=== PATIENT | male | born 1940 | race Caucasian/White ===

== ENCOUNTER 2018-12-04 16:02 | Inpatient (IN) | payer MEDICARE, BC ==
[~2018-12-04] VITALS: Ht 185.4 cm; Wt 79.8 kg
--- OUTSIDE RECORDS SUMMARY | 2018-12-04 16:05 | XMS REPORT | Clinical Summary ---
Author Author [facility] Organization [facility] Address Unknown Phone Unavailable Care Team Providers Care Auto Body Customizer Name Role Phone Coy Jolly PCP Allergies Comments Active Allergy Reactions Severity Noted Date Sulfa (Sulfonamide 07/23/2016 Antibiotics) Sulphated Oil 07/23/2016 Medications End Date Status Medication Sig Dispensed Refills Start Date Active glipiZIDE (GLUCOTROL) 2.5 Take 2.5 mg 0 MG 24 hr tablet by mouth daily. Active amLODIPine (NORVASC) 5 mg Take 5 mg by 0 tablet mouth daily. Active isosorbide dinitrate Take 20 mg by 0 (ISORDIL) 20 MG tablet mouth 2 (two) times a day. Active docusate sodium (COLACE) Take 100 mg 0 100 MG capsule by mouth daily as needed for constipation. Active metoprolol succinate XL Take 25 mg by 0 (TOPROL-XL) 25 mg 24 hr mouth daily. tablet Active lisinopril Take 2.5 mg 0 (PRINIVIL,ZESTRIL) 2.5 mg by mouth tablet nightly. 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 Last Filed Vital Signs Not on file Plan of Treatment Health Maintenance Due Date Last Done Comments SHINGLES VACCINES (#1) 1988 65+ PNEUMOCOCCAL VACCINE 2003 (1 of 2 - PCV13) INFLUENZA VACCINE 10/13/2018 01/22/2012 Results Not on fileafter 12/03/2017 Insurance Type Payer Benefit Subscriber ID Effective Phone Address Plan / Dates Group Medicare MEDICARE MEDICARE xxxxxxxxxx 1995-P [place], PART A AND resent [place] B PPO BCBS BCBS xxxxxxxxxxxx 2014-P CHOICE resent PPO/IAIN KEN PPO Advance Directives For more information, please contact: [phone] Patient Recovery Coordinator Explanation Type Date Recorded Advance Directives, Living Will and Medical Power of Cash Applications Representative
--- OUTSIDE RECORDS SUMMARY | 2018-12-04 16:05 | XMS REPORT ---
Author [facility] Address Unknown Phone Unavailable Care Team Providers Care Cyber Software Engineer Name Role Phone Unavailable Unavailable Payers Payer Name Policy Type Policy Number Effective Date Expiration Date Problems This patient has no known problems. Allergies, Adverse Reactions, Alerts Allergy Name Allergy Type Status Severity Reaction(s) Onset Date Inactive Date Treating Clinician Comments Sulfa (Sulfonamide Antibiotics) DA Active MO 2017-04-13 00:00:00 Medications This patient has no known medications. Results Test Description Test Time Test Comments Text Results Atomic Results Result Comments GLUBED 2018-08-29 08:05:00 GLUBED (test code=GLUBED) 167 mg/dL 74-106 Performed by certified bituminous distributor operator at [facility] [id number] 08:05:00* Test Item Value Reference Range Comments GLUBED (test code=GLUBED) 79 mg/dL 74-106 Performed by certified bituminous distributor operator at [facility] [id number] 08:05:00* Test Item Value Reference Range Comments GLUBED (test code=GLUBED) 101 mg/dL 74-106 Performed by certified bituminous distributor operator at [facility] AB HEPATITIS B [id number] 06:11:00* Test Item Value Reference Range Comments AB HEPATITIS B SURFACE (test code=HBSAB) Non Reactive () Non Reactive: Inconsistent with immunity, less than 10 mIU/mL Reactive: Consistent with immunity, greater than 9.9 mIU/mLPerformed At: [facility] [address] [place], [place] [id number] Rigo Greene MD Ph:[phone] S@SENT TO: [id number] 11:04:00* Test Item Value Reference Range Comments GLUBED (test code=GLUBED) 131 mg/dL 74-106 Performed by certified bituminous distributor operator at [facility] [id number] 20:24:00* Test Item Value Reference Range Comments GLUBED (test code=GLUBED) 161 mg/dL 74-106 Performed by certified bituminous distributor operator at [facility] [id number] 21:41:00* Test Item Value Reference Range Comments GLUBED (test code=GLUBED) 108 mg/dL 74-106 Performed by certified bituminous distributor operator at [facility] BASIC METABOLIC [id number] 09:02:00* Test Item Value Reference Range Comments SODIUM (test code=NA) 136 mmol/L 136-145 POTASSIUM (test code=K) 4.1 mmol/L 3.5-5.1 CHLORIDE (test code=CL) 101.0 mmol/L 98-107 CARBON DIOXIDE (test code=CO2) 24.0 mmol/L 21-32 ANION GAP (test code=GAP) 15.1 10-20 GLUCOSE (test code=GLU) 100 mg/dL 74-106 BLOOD UREA NITROGEN (test code=BUN) 33 mg/dL 7-18 GLOMERULAR FILTRATION RATE (test code=GFR) 10 mL/min >=60 Estimated GFR by using Modified MDRD formula.Chronic kidney disease is defined as either kidney damageor GFR <60 mL/min/1.73 m2 for >3 months. CREATININE (test code=CREAT) 5.40 mg/dL 0.7-1.3 BUN/CREATININE RATIO (test code=BUN/CREA) 6.1 10-20 CALCIUM (test code=CA) 7.9 mg/dL 8.5-10.1 BASIC METABOLIC [id number] 08:55:00* Test Item Value Reference Range Comments SODIUM (test code=NA) 136 mmol/L 136-145 POTASSIUM (test code=K) 4.1 mmol/L 3.5-5.1 CHLORIDE (test code=CL) 101.0 mmol/L 98-107 CARBON DIOXIDE (test code=CO2) mmol/L 21-32 ANION GAP (test code=GAP) 10-20 GLUCOSE (test code=GLU) mg/dL 74-106 BLOOD UREA NITROGEN (test code=BUN) mg/dL 7-18 GLOMERULAR FILTRATION RATE (test code=GFR) mL/min >=60 CREATININE (test code=CREAT) mg/dL 0.7-1.3 BUN/CREATININE RATIO (test code=BUN/CREA) 10-20 CALCIUM (test code=CA) mg/dL 8.5-10.1 CBC W/O [id number] 08:16:00* Test Item Value Reference Range Comments WHITE BLOOD CELL (test code=WBC) 8.2 K/mm3 4.5-12.5 RED BLOOD CELL (test code=RBC) 3.56 mill/mm3 4.0-5.8 HEMOGLOBIN (test code=HGB) 11.5 gram/dL 13.0-17.5 HEMATOCRIT (test code=HCT) 36.8 % 42.0-52.0 MEAN CELL VOLUME (test code=MCV) 103.4 fL 80-98 MEAN CELL HGB (test code=MCH) 32.3 picogram 27.0-33.0 MEAN CELL HGB CONCETRATION (test code=MCHC) 31.3 gram/dL 33.0-36.0 RED CELL DISTRIBUTION WIDTH (test code=RDW) 14.6 % 11.6-16.2 PLATELET COUNT (test code=PLT) 154 K/mm3 150-450 MEAN PLATELET VOLUME (test code=MPV) 9.6 fL 6.7-11.0 [id number] 06:08:00* Test Item Value Reference Range Comments GLUBED (test code=GLUBED) 86 mg/dL 74-106 Performed by certified bituminous distributor operator at [facility] [id number] 20:59:00* Test Item Value Reference Range Comments GLUBED (test code=GLUBED) 99 mg/dL 74-106 Performed by certified bituminous distributor operator at [facility] [id number] 16:18:00* Test Item Value Reference Range Comments GLUBED (test code=GLUBED) 151 mg/dL 74-106 Performed by certified bituminous distributor operator at [facility] [id number] 12:51:00* Test Item Value Reference Range Comments POTASSIUM (test code=K) 4.0 mmol/L 3.5-5.1 [id number] 10:51:00* Test Item Value Reference Range Comments GLUBED (test code=GLUBED) 134 mg/dL 74-106 Performed by certified bituminous distributor operator at [facility] [id number] 06:46:00* Test Item Value Reference Range Comments GLUBED (test code=GLUBED) 78 mg/dL 74-106 Performed by certified bituminous distributor operator at [facility] [id number] 02:37:00* Test Item Value Reference Range Comments TROPONIN-I (test code=TROPI) 0.037 ng/mL 0-0.045 DIALYSIS IS DRAWING V.LAB.KW 08/11/18 1355COMMENTS TO BEEF PLUCK TRIMMER: COLLECT 3 H OURS AFTER PREVIOUS [id number] 20:51:00* Test Item Value Reference Range Comments GLUBED (test code=GLUBED) 123 mg/dL 74-106 Performed by certified bituminous distributor operator at [facility] [id number] 16:49:00* Test Item Value Reference Range Comments GLUBED (test code=GLUBED) 112 mg/dL 74-106 Performed by certified bituminous distributor operator at [facility] AG HEPAT B [id number] 12:29:00* Test Item Value Reference Range Comments AG HEPAT B SURF (test code=HBSAG) Nonreactive Index Nonreactive COMMENTS TO BEEF PLUCK TRIMMER: NEED RESULT BEFORE DIALYSIS [id number] 12:25:00* Test Item Value Reference Range Comments GLYCOSYLATED HEMOGLOBIN (HA1C) (test code=GLYHGB) 4.9 % HbA1 4.8-6.0 ESTIMATED AVERAGE GLUCOSE (test code=EAG) 94 MG/DL BASIC METABOLIC [id number] 12:02:00* Test Item Value Reference Range Comments SODIUM (test code=NA) 136 mmol/L 136-145 POTASSIUM (test code=K) 2.8 mmol/L 3.5-5.1 Results called to TONY [id number] by V.LAB.OA 08/11/18 1202Critical results verified and read back by Nurse? Y CHLORIDE (test code=CL) 100.0 mmol/L 98-107 CARBON DIOXIDE (test code=CO2) 29.0 mmol/L 21-32 ANION GAP (test code=GAP) 9.8 10-20 GLUCOSE (test code=GLU) 147 mg/dL 74-106 BLOOD UREA NITROGEN (test code=BUN) 27 mg/dL 7-18 GLOMERULAR FILTRATION RATE (test code=GFR) 12 mL/min >=60 Estimated GFR by using Modified MDRD formula.Chronic kidney disease is defined as either kidney damageor GFR <60 mL/min/1.73 m2 for >3 months. CREATININE (test code=CREAT) 4.60 mg/dL 0.7-1.3 BUN/CREATININE RATIO (test code=BUN/CREA) 5.9 10-20 CALCIUM (test code=CA) 7.4 mg/dL 8.5-10.1 [id number] 11:42:00* Test Item Value Reference Range Comments TROPONIN-I (test code=TROPI) 0.062 ng/mL 0-0.045 Results called to [id number] V.LAB. 08/11/18 1142Critical results verified and read back by Nurse? Y COMMENTS TO BEEF PLUCK TRIMMER: COLLECT 3 HOURS AFTER PREVIOUS SAMPLELIPID PROFILE (CORONARY RISK)2018-08-11 11:33:00* Test Item Value Reference Range Comments TRIGLYCERIDES (test code=TRIG) 69 mg/dL 20-150 CHOLESTEROL (test code=CHOL) 66 mg/dL 0-200 CHOLESTEROL/HDL RATIO (test code=CHOLHDL) 2.0 RATIO 0-4.9 RISK ASSOCIATED WITH CHOL/HDL RATIOS: Risk Male Female1/2 AVERAGE 3.43 3.27AVERAGE 4.97 4.442X AVERAGE 9.55 7.053X AVERAGE 23.39 11.04 REFERENCE VALUE IS RELATED TO RISK LEVELS ASRECOMMENDED BY THE LETICIA. HEART, LUNG, AND BLOOD INST. HDL CHOLESTEROL (test code=HDL) 29 mg/dL 40-60 LIPOPROTEIN LDL (test code=LDL) 30 mg/dL 100-129 Reference Interval: mg/dL mmol/L Optimal <100 <2.6Near/above optimal 100-129 2.6- 3.3Borderline High 130-159 3.4-4.1High 160-189 4.1-4.9Very High >=190 >=4.9=========This LDL result is a direct measurement.========= PT HARD STICK PER RN KELLIE @[facility].SP3 08/11/18 0838CBC W/AUTO [id number] 11:27:00* Test Item Value Reference Range Comments WHITE BLOOD CELL (test code=WBC) 8.9 K/mm3 4.5-12.5 RED BLOOD CELL (test code=RBC) 3.06 mill/mm3 4.0-5.8 HEMOGLOBIN (test code=HGB) 10.0 gram/dL 13.0-17.5 RESULT VERIFIED BY REPEAT ANALYSIS HEMATOCRIT (test code=HCT) 30.6 % 42.0-52.0 MEAN CELL VOLUME (test code=MCV) 100.0 fL 80-98 MEAN CELL HGB (test code=MCH) 32.7 picogram 27.0-33.0 MEAN CELL HGB CONCETRATION (test code=MCHC) 32.7 gram/dL 33.0-36.0 RED CELL DISTRIBUTION WIDTH (test code=RDW) 14.5 % 11.6-16.2 RED CELL DISTRIBUTION WIDTH SD (test code=RDW-SD) 52.9 fL 37.0-51.0 PLATELET COUNT (test code=PLT) 136 K/mm3 150-450 MEAN PLATELET VOLUME (test code=MPV) 9.7 fL 6.7-11.0 NEUTROPHIL % (test code=NT%) 75.7 % 39.0-69.0 IMMATURE GRANULOCYTE % (test code=IG%) 0.7 % 0.0-5.0 LYMPHOCYTE % (test code=LY%) 12.5 % 25.0-55.0 MONOCYTE % (test code=MO%) 7.1 % 0.0-10.0 EOSINOPHIL % (test code=EO%) 3.5 % 0.0-5.0 BASOPHIL % (test code=BA%) 0.5 % 0.0-1.0 NUCLEATED RBC % (test code=NRBC%) 0.0 % 0-0 NEUTROPHIL # (test code=NT#) 6.72 K/mm3 1.8-7.7 IMMATURE GRANULOCYTE # (test code=IG#) 0.06 x10 3/uL 0-0.03 LYMPHOCYTE # (test code=LY#) 1.11 K/mm3 1.0-5.0 MONOCYTE # (test code=MO#) 0.63 K/mm3 0-0.8 EOSINOPHIL # (test code=EO#) 0.31 K/mm3 0.0-0.5 BASOPHIL # (test code=BA#) 0.04 K/mm3 0.0-0.2 NUCLEATED RBC # (test code=NRBC#) 0.00 K/mm3 0.0-0.1 MANUAL DIFF REQUIRED (test code=MDIFF) NO [id number] 06:59:00* Test Item Value Reference Range Comments GLUBED (test code=GLUBED) 87 mg/dL 74-106 Performed by certified bituminous distributor operator at [facility] BASIC METABOLIC [id number] 00:10:00* Test Item Value Reference Range Comments SODIUM (test code=NA) 135 mmol/L 136-145 POTASSIUM (test code=K) 3.4 mmol/L 3.5-5.1 CHLORIDE (test code=CL) 97.0 mmol/L 98-107 CARBON DIOXIDE (test code=CO2) 28.0 mmol/L 21-32 ANION GAP (test code=GAP) 13.4 10-20 GLUCOSE (test code=GLU) 106 mg/dL 74-106 BLOOD UREA NITROGEN (test code=BUN) 28 mg/dL 7-18 GLOMERULAR FILTRATION RATE (test code=GFR) 12 mL/min >=60 Estimated GFR by using Modified MDRD formula.Chronic kidney disease is defined as either kidney damageor GFR <60 mL/min/1.73 m2 for >3 months. CREATININE (test code=CREAT) 4.70 mg/dL 0.7-1.3 BUN/CREATININE RATIO (test code=BUN/CREA) 6.0 10-20 CALCIUM (test code=CA) 8.2 mg/dL 8.5-10.1 [id number] 00:10:00* Test Item Value Reference Range Comments TROPONIN-I (test code=TROPI) 0.055 ng/mL 0-0.045 Results called to [id number] by V.LAB.AG1 08/11/18 0009Critical results verified and read back by Nurse? Y BASIC METABOLIC [id number] 23:59:00* Test Item Value Reference Range Comments SODIUM (test code=NA) 135 mmol/L 136-145 POTASSIUM (test code=K) 3.4 mmol/L 3.5-5.1 CHLORIDE (test code=CL) 97.0 mmol/L 98-107 CARBON DIOXIDE (test code=CO2) mmol/L 21-32 ANION GAP (test code=GAP) 10-20 GLUCOSE (test code=GLU) mg/dL 74-106 BLOOD UREA NITROGEN (test code=BUN) mg/dL 7-18 GLOMERULAR FILTRATION RATE (test code=GFR) mL/min >=60 CREATININE (test code=CREAT) mg/dL 0.7-1.3 BUN/CREATININE RATIO (test code=BUN/CREA) 10-20 CALCIUM (test code=CA) 8.2 mg/dL 8.5-10.1 [id number] 23:59:00* Test Item Value Reference Range Comments TROPONIN-I (test code=TROPI) ng/mL 0-0.045 - CT C-SPINE W/O [id number] 23:35:00 Name: LAMONT RODRIGUES [facility] : 1940 Age/S: 78 / M [address] [facility] Unit #: [id number] Loc: [place] [address] Phys: Krystal Curiel MD Acct: [id number] Dis Date: Status: REG ER PHONE #: [phone] Exam Date: 08/10/2018 8696 FAX #: [phone] Reason: FALL EXAMS: CPT CODE: [id number] CT C-SPINE W/O CONTRAST 31935 EXAM: CT of the Cervical spine without contrast Location: R16 HISTORY: FALL, pain , COMPARISON: None available TECHNIQUE: Axial images of the cervical spine were obtained without without contrast. Images were reformatted to create coronal and sagittal reconstructions. One or more of the following dose reduction techniques were utilized: Automatic exposure control, adjustment of the mA and/or kV according to patient size, and/or iterative reconstruction technique. DLP: 451 mGy-cm FINDINGS: There is mild straightening of normal cervical doses. There is grade 1 anterolisthesis of C3 on C4 secondary to moderate facet arthropathy. Vertebral body heights are maintained. There is disc space narrowing at the C3-C4, C5-C6 and C6-C7 levels. Endplate sclerosis and cy stic changes are noted at these levels. There is no acute fracture or dislocation. Paraspinal soft tissues are within normal limits. Bulky calcific plaque is present at bilateral carotid bifurcations. The visuali zed fascial planes the neck are within normal limits. Occiput to C 1: Intact C1-C2: Narrowing of the predental space. Atlantoaxial j oint is maintained. No canal stenosis. C2-C3: No canal or f oraminal stenosis C3-C4: Grade 1 anterolisthesis secondary to mode rate facet arthropathy. Disc osteophyte complex measuring up to 4 mm. Mo derate canal stenosis with AP canal dimension measuring 7.8 mm. Moderate foraminal narrowing. C4-C5: Disc osteophyte complex measuring 2 to 3 mm. There is mild uncovertebral hypertrophy and facet arthropathy and foraminal narrowing. No canal stenosis C5-C6: Disc os teophyte complex measuring up to 2 to 3 mm. Moderate bilateral uncoverteb ral hypertrophy and foraminal narrowing. There is no central canal stenos is PAGE 1 Signed Report (CONTINUED ) Name: LAMONT RODRIGUES [facility] OB: 1940 Age/S: 78 / M [address] [facility] Unit #: [id number] Loc: [place] [address] Phys: Acosta MD Acct: [id number] Dis Date: Status: REG ER PHONE #: [phone] Exam Date: 08/10/2018 7106 FAX #: Reason: FALL EXAMS: CPT CODE: [id number] CT C-SPINE W/O CONTRAST 57546 <Continued> C6-C7: Disc osteophyte complex measuring 2 mm. Mild to moderate right and mild left uncovertebral hypertrophy and foraminal narrowing. No central canal stenosis. C7-T1: No canal or foraminal stenosis. T1-T2: No canal or foraminal stenosis. IMPRESSION: 1. No acute fracture or dislocation. 2. 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 There is moderate canal stenosis at C3-C4 level. There is foraminal narrowing from C3-C4 through C6-C7. at 2335 Reported and signed by: Larry Alvarez M.D. CC: Coy Jolly Technologist:KYLE DUARTE CT CTDI: DLP: Trnscb Date/Time: 08/10/2018 (9916) [email or web address] Orig Print D/T: S: 08/10/2018 (3553) PAGE 2 Signed Report - CT HEAD/BRAIN W/O [id number] 23:11:00 Name: LAMONT RODRIGUES [facility] : 1940 Age/S: 78 / M [address] [facility] Unit #: [id number] Loc: [place] [address] Phys: Krystal Curiel MD Acct: [id number] Dis Date: Status: REG ER PHONE #: [phone] Exam Date: 08/10/20182249 FAX #: [phone] Reason: FALL EXAMS: CPT CODE: [id number] CT HEAD/BRAIN W/O CONT 59991 EXAM: - CT HEAD/BRAIN W/O CONT HISTORY: Fall. TECHNIQUE: Axial tomograms through the brain were obtained without intravenous contrast. This exam was performed according to our departmental dose-optimization program, which includes automated exposure control, adjustment of the mA and/or kV according to patient size and/or use of iterative reconstruction technique. COMPARISON: None available time of interpretation. FINDINGS: There is no intracranial hemorrhage, mass, or mass effect. The ventricular system and sulci are age-appropriate. Chronic microvascular ischemic white matter changes are present. There is no significant change compared to previous exam. The osseous structures and orbits, show no significant abnormalities. The visualized sinuses are relatively clear. There is minimal soft tissue laceration and swelling in right parietal scalp. IMPRESSION: No evidence of acute intracranial hemorrhage. at 2311 Reported and signed by: Mukesh Tang MD CC: Coy Jolly Technologist:KYLE ROSS CTDI: DLP: Trnscb Date/Time: 08/10/2018 (3126) [email or web address] Orig Print D/T: S: 08/10/2018 (1883) PAGE 1 Signed Report CBC W/O [id number] 22:58:00* Test Item Value Reference Range Comments WHITE BLOOD CELL (test code=WBC) 12.2 K/mm3 4.5-12.5 RED BLOOD CELL (test code=RBC) 4.08 mill/mm3 4.0-5.8 HEMOGLOBIN (test code=HGB) 13.0 gram/dL 13.0-17.5 HEMATOCRIT (test code=HCT) 41.3 % 42.0-52.0 MEAN CELL VOLUME (test code=MCV) 101.2 fL 80-98 MEAN CELL HGB (test code=MCH) 31.9 picogram 27.0-33.0 MEAN CELL HGB CONCETRATION (test code=MCHC) 31.5 gram/dL 33.0-36.0 RED CELL DISTRIBUTION WIDTH (test code=RDW) 14.4 % 11.6-16.2 PLATELET COUNT (test code=PLT) 155 K/mm3 150-450 MEAN PLATELET VOLUME (test code=MPV) 9.7 fL 6.7-11.0
--- OUTSIDE RECORDS SUMMARY | 2018-12-04 16:11 | XMS REPORT | Clinical Summary ---
Author Author [facility] Address Unknown Phone Unavailable Care Team Providers Care Pediatric Occupational Therapist Name Role Phone Coy Jolly PCP Allergies [...] Advance Directives For more information, please contact: [phone] Patient Splicer Helper Explanation Type Date Recorded Advance Directives, Living Will and Medical Power of Expediter Service Order
[2018-12-04 16:50] LABS: BASOPHILS % 0.7 % (0.0-1.0); EOSINOPHILS # (AUTO) 0.4 (0.0-0.4); EOSINOPHILS % 6.6 % (0.0-6.0); HEMATOCRIT 32.8 % (38.2-49.6); HEMOGLOBIN 10.6 g/dL (14.0-18.0); LYMPHOCYTES % 17.7 % (18.0-39.1); MEAN CORPUSCULAR HEMOGLOBIN 32.3 pg (28-32); MEAN CORPUSCULAR HGB CONC 32.3 g/dL (31-35); MONOCYTES # (AUTO) 0.5 (0.2-0.8); MONOCYTES % 9.7 % (4.4-11.3); NEUTROPHILS # (AUTO) 3.6 (2.1-6.9); NEUTROPHILS % 64.9 % (38.7-80.0); PLATELET COUNT 107 x10e3/uL (140-360); RED BLOOD COUNT 3.28 x10e6/uL (4.3-5.7); RED CELL DISTRIBUTION WIDTH 14.5 % (11.7-14.4)
[2018-12-04 16:56] LABS: CLARITY,URINE CLEAR (CLEAR); COLOR,URINE YELLOW (YELLOW)
[2018-12-04 16:58] LABS: KETONES,URINE NEGATIVE (NEGATIVE); LEUKOCYTE ESTERASE ,URINE TRACE (NEGATIVE); NITRITE,URINE NEGATIVE (NEGATIVE); PROTEIN,URINE DIPSTICK NEGATIVE (NEGATIVE)
[2018-12-04 16:59] LABS: BILIRUBIN,URINE SMALL (NEGATIVE); URINE UROBILINOGEN 0.2 mg/dL (0.2 - 1)
[2018-12-04 17:00] LABS: BACTERIA,URINE RARE /HPF; EPITHELIAL CELLS,URINE FEW /LPF; RBC,URINE 0-5 /HPF (0-5); WBC,URINE (MAN) 0-5 /HPF (0-5)
[2018-12-04 17:07] LABS: INR 0.96; PROTHROMBIN TIME 13.3 seconds (11.9-14.5)
--- NOTE | 2018-12-04 17:07 | NUR ---
DAUGHTER WENT HOME TO CHECK ON OTHER FAMILY MEMBER AND TO GET MEDICATIONS
[2018-12-04 17:08] LABS: PARTIAL THROMBOPLASTIN TIME 38.9 seconds (23.8-35.5)
[2018-12-04 17:17] LABS: ALBUMIN 2.7 g/dL (3.5-5.0); ALBUMIN/GLOBULIN RATIO 0.9 (0.8-2.0); ALKALINE PHOSPHATASE 123 IU/L (40-150); ANION GAP 15.3 mmol/L (8-16); BLOOD UREA NITROGEN 37 mg/dL (7-26); BUN/CREATININE RATIO 5 (6-25); CALCIUM 8.7 mg/dL (8.4-10.2); CARBON DIOXIDE 29 mmol/L (22-29); CHLORIDE 94 mmol/L (98-107); CREATINE KINASE 28 IU/L (30-200); CREATININE, SERUM 7.28 mg/dL (0.72-1.25); EST GLOMERULAR FILTRATION RATE 7 ML/MIN (60-); GLUCOSE 94 mg/dL (74-118); POTASSIUM 3.3 mmol/L (3.5-5.1); SODIUM 135 mmol/L (136-145)
--- NOTE | 2018-12-04 17:26 | NUR ---
DR. WILLETT AT BEDSIDE GOING OVER LAB RESULTS WITH PATIENT
[2018-12-04 17:29] LABS: ALANINE AMINOTRANSFERASE < 6 IU/L (0-55)
--- NOTE | 2018-12-04 17:30 | Diagnostic Imaging Report ---
Examination: Single AP view of the chest. COMPARISON: None. INDICATION: Altered mental status DISCUSSION: The lungs are well-inflated. There are postthoracotomy changes of the left chest with a defect of the posterior sixth rib and healed fracture deformities of the fifth and seventh ribs with mediastinal surgical clips and left hemithoracic volume loss with upward hilar retraction. Blunting of the lateral costophrenic sulcus may reflect a trace effusion or postsurgical pleural thickening. There are patchy opacities in the right lung base with a questionable associated trace effusion. The right upper lung is comparatively well aerated. Atherosclerotic calcification of the thoracic aorta. Otherwise normal heart size. No overt pulmonary edema. A deformed vascular stent projects over the left axilla. No acute osseous abnormality otherwise. Posttraumatic deformity of the distal left clavicle and acromioclavicular joint. IMPRESSION: Patchy opacities in the right lung base are concerning for aspiration pneumonitis in the clinical setting of altered mental status. Consolidative pneumonia is an additional consideration. Follow-up chest radiograph in 6-8 weeks is suggested to document resolution after appropriate treatment. Postsurgical changes of the left lung as above. Signed by: Dr. Kofi Teixeira M.D. on 12/04/2018 5:26 PM
--- NOTE | 2018-12-04 17:32 | Diagnostic Imaging Report ---
Exam: Head CT without contrast History: Altered mental status Comparison studies: None Technique: Axial images were obtained from the skull base to the vertex. Coronal and sagittal images reconstructed from the axial data. Dose modulation, iterative reconstruction, and/or weight based adjustment of the mA/kV was utilized to reduce the radiation dose to as low as reasonably achievable. Radiation dose: Total DLP: 921 mGy*cm. Estimated effective dose: DLP x 0.015 Intravenous contrast: None Findings: Scalp: No abnormalities. Bones: No fractures, blastic or lytic lesions. Brain sulci: Moderately probably. Ventricles: Moderate compensatory dilatation. No hydrocephalus. Extra-axial spaces: No masses, no fluid collection. Parenchyma: No mass, acute hemorrhage or acute or chronic cortical insults. Confluent hypodensities in the supratentorial white matter are nonspecific but are most compatible with chronic microvascular ischemic changes. Chronic lacunar infarcts are present in the right striatal--capsular region, posterior left lentiform nucleus, left thalamus and left paramedian jori. Sellar/suprasellar region: No abnormalities. Craniocervical junction: Patent foramen magnum. No Chiari one malformation. Incidental findings: Right lens replacement for previous cataract surgery. Chronic inflammatory changes in the right mastoids. Extensive vascular calcifications in the carotid siphons, intradural vertebral arteries and within scalp arterial branches which can be seen in patients with chronic kidney disease. IMPRESSION: No acute intracranial abnormalities. Chronic findings: 1. Moderate generalized parenchymal volume loss. 2. Severe chronic microvascular ischemic changes with multiple chronic lacunar infarcts as described. Signed by: Dr. Kofi Gaffney M.D. on 12/04/2018 5:29 PM
[2018-12-04] MEDS ORDERED: AZITHROMYCIN 500MG/NS 250 ML 250 ML IV SCH (18:00)
[2018-12-04] MEDS: PIPERACILLIN/TAZO 2.25 GM 50 ML IV SCH ×2 (18:53→21:00)
--- NOTE | 2018-12-04 19:01 | NUR ---
PATIENTS DAUGHTER CAME BACK TO HOSPITAL TO CHECK ON HIM AND FORGET MEDICATIONS. SHE IS GOING BACK HOME AGAIN TO GET THEM
[2018-12-04] MEDS ORDERED: ONDANSETRON HCL INJ 2MG/ML 2ML 2 MG/ML VIAL IV PRN (20:00)
[2018-12-04] MEDS ORDERED: ACETAMINOPHEN 325 MG TAB PO PRN (20:00)
[2018-12-04] MEDS ORDERED: ALBUTEROL/IPRATROPIUM 3 ML NEB NEB PRN (20:00)
[2018-12-04] MEDS ORDERED: HYDRALAZINE HCL 20 MG/ML VIAL IV PRN (20:00)
--- NOTE | 2018-12-04 20:05 | NUR ---
Received from the ER via stretcher. Patient is alert, responsive and oriented. Transferred to bed. Oriented to room. Call light within reached.
[2018-12-04] MEDS ORDERED: SODIUM CHLORIDE 0.9% 1000ML 1,000 ML IV SCH (20:15)
[2018-12-04] MEDS ORDERED: POTASSIUM CHLORIDE 20MEQ/100ML 100 ML IV ONE (20:15)
[2018-12-04 20:34] VITALS: BP 177/77
[2018-12-04] MEDS ORDERED: ADVIL200 M1 PO (21:03)
[2018-12-04] MEDS ORDERED: COMBIVENT RESPIM4 GM IH (21:19)
[2018-12-04] MEDS ORDERED: NORCO 7.5-3251 EACH PO (21:19)
[2018-12-04] MEDS ORDERED: NICORETTE2 MG PO (21:19)
[2018-12-04] MEDS ORDERED: LEVOTHYROXINE112 MCG PO (21:19)
[2018-12-04] MEDS ORDERED: ISOSORBIDE DINI20 MG PO (21:19)
[2018-12-04] MEDS ORDERED: TRAZODONE HCL50 MG PO (21:19)
[2018-12-04] MEDS ORDERED: HYDROGEL3000 GM TOP (21:19)
[2018-12-04] MEDS ORDERED: FLEET ENEMA133 ML PR (21:19)
[2018-12-04] MEDS ORDERED: LISINOPRIL2.5 MG PO (21:19)
[2018-12-04] MEDS ORDERED: AMITIZA24 MCG PO (21:19)
[2018-12-04] MEDS ORDERED: CALCIUM ALGINATE1 GM TP (21:25)
[2018-12-04] MEDS ORDERED: NORMAL SALINE TP (21:25)
[2018-12-04 22:30] VITALS: BP 177/77
[2018-12-04 22:39] VITALS: BP 177/77
[2018-12-04] MEDS: AZITHROMYCIN 500MG/NS 250 ML 250 ML IV SCH (23:00)
[2018-12-05] VITALS (7 sets, daily range): BP systolic 118–164; BP diastolic 55–66
[2018-12-05] MEDS: AZITHROMYCIN 500MG/NS 250 ML 250 ML IV SCH (00:35)
--- NOTE | 2018-12-05 03:00 | NUR ---
Spoke with production tech for the second time regarding sputum and gram stain induced. production tech acknowledged.
--- NOTE | 2018-12-05 03:30 | NUR ---
Blood draw unsuccessful by 2 RN.
--- NOTE | 2018-12-05 04:50 | NUR ---
Char ADVERTISING DESIGNER notified of dropping HR when patient is asleep.
[2018-12-05] MEDS ORDERED: LUBIPROSTONE 24 MCG CAP PO PRN (05:00)
[2018-12-05] MEDS ORDERED: HYDROCODONE/APAP 7.5MG-325MG 1 EA TAB PO PRN (05:00)
[2018-12-05] MEDS ORDERED: DEXTROSE 50% SYRINGE 50 ML IV PRN (05:00)
[2018-12-05] MEDS ORDERED: MELATONIN 3 MG TAB PO PRN (05:15)
[2018-12-05] MEDS ORDERED: ACETAMINOPHEN/CODEINE 300MG - 30MG TAB PO PRN (05:15)
[2018-12-05] MEDS ORDERED: FAMOTIDINE 20 MG TAB PO SCH (06:00)
--- NOTE | 2018-12-05 06:22 | NUR ---
Spoke with nursing tech regarding sputum sample. Tech states patient has to cough it it out. Patient is unable to cough out sputum at this time.
[2018-12-05 06:28] LABS: BASOPHILS % 0.5 % (0.0-1.0); EOSINOPHILS # (AUTO) 0.5 (0.0-0.4); HEMATOCRIT 36.1 % (38.2-49.6); HEMOGLOBIN 11.5 g/dL (14.0-18.0); LYMPHOCYTES # (AUTO) 1.6 (1.0-3.2); MEAN CORPUSCULAR HEMOGLOBIN 32.1 pg (28-32); MEAN CORPUSCULAR HGB CONC 31.9 g/dL (31-35); MEAN CORPUSCULAR VOLUME 100.8 fL (81-99); MONOCYTES # (AUTO) 0.9 (0.2-0.8); MONOCYTES % 12.5 % (4.4-11.3); NEUTROPHILS # (AUTO) 4.4 (2.1-6.9); NEUTROPHILS % 58.7 % (38.7-80.0); PLATELET COUNT 117 x10e3/uL (140-360); RED BLOOD COUNT 3.58 x10e6/uL (4.3-5.7); RED CELL DISTRIBUTION WIDTH 14.6 % (11.7-14.4)
[2018-12-05 06:51] LABS: ALBUMIN 2.7 g/dL (3.5-5.0); ALBUMIN/GLOBULIN RATIO 0.8 (0.8-2.0); ANION GAP 16.1 mmol/L (8-16); CALCIUM 8.5 mg/dL (8.4-10.2); CREATININE, SERUM 7.82 mg/dL (0.72-1.25); POTASSIUM 4.1 mmol/L (3.5-5.1)
[2018-12-05] MEDS: ALBUTEROL SULF 0.083% NEB SOLN 3 ML NEB NEB SCH ×4 (07:00→23:02)
[2018-12-05] MEDS: IPRATROPIUM BROMIDE 0.02% 2.5 ML NEB NEB SCH ×4 (07:00→23:02)
[2018-12-05] MEDS: INSULIN LISPRO 100 UNIT/1 ML 3ML VIAL SQ SCH ×4 (07:30→21:00)
[2018-12-05 07:31] LABS: CREATINE KINASE MB 0.9 ng/mL (0-5.0)
[2018-12-05] MEDS ORDERED: LISINOPRIL 2.5 MG TAB PO SCH (09:00)
[2018-12-05] MEDS ORDERED: ISOSORBIDE DINITRATE 10 MG PO SCH (09:00)
[2018-12-05] MEDS: AMLODIPINE BESYLATE 10 MG TAB PO SCH (09:56)
[2018-12-05] MEDS: LEVOTHYROXINE SODIUM 112 MCG TAB PO SCH (09:57)
[2018-12-05] MEDS: GUAIFENESIN 600MG/DEXTROMETHORPHAN 30MG TABSR PO SCH ×2 (09:58→17:31)
[2018-12-05] MEDS: FAMOTIDINE 20 MG TAB PO SCH ×2 (09:58→17:30)
[2018-12-05] MEDS: PIPERACILLIN/TAZO 2.25 GM 50 ML IV SCH ×2 (09:58→20:53)
[2018-12-05] MEDS: ISOSORBIDE DINITRATE 20 MG TAB PO SCH ×2 (09:58→17:31)
[2018-12-05] MEDS ORDERED: ONDANSETRON HCL 4 MG ORAL DISINTEGRATING TAB PO PRN (10:45)
[2018-12-05] MEDS ORDERED: ALBUMIN 25% 12.5GM 0.25 GM/ML BTL IV PRN (13:30)
[2018-12-05] MEDS ORDERED: SODIUM CHLORIDE 0.9% 250ML 500 ML IV PRN (13:30)
[2018-12-05] MEDS ORDERED: MANNITOL 25% 12.5GM/50 ML VIAL IV PRN (13:30)
[2018-12-05] MEDS ORDERED: SODIUM CHLORIDE 0.9% 1000ML 2,000 ML IV PRN (13:30)
--- NOTE | 2018-12-05 14:36 | NUR ---
ST NOTE: C-arm not available to complete MBS today, if MBS can not be completed on before d/c, an outpatient MBS is highly recommended.
--- NOTE | 2018-12-05 14:37 | Diagnostic Imaging Report ---
Examination: MRI BRAIN WO CONTRAST History: Altered mental status. Confusion. Comparison studies: Head CT performed December 04, 2018. Technique: Sagittal T2; axial DWI, FLAIR, GRE or SWI, T1, Coronal FLAIR. Intravenous contrast: None Findings: Scalp: No abnormal signal. No masses. Bone marrow: Normal in signal intensity. Brain volume: Moderate generalized volume loss for patient's age. Moderate volume loss of the midbrain. Ventricles: No hydrocephalus. Extra-axial spaces: No abnormalities. Parenchyma: Again demonstrated are confluent areas of T2/FLAIR hyperintensity in the periventricular and subcortical white matter, nonspecific. Chronic lacunar infarcts are again identified in the right frontal burdick radiata, left thalamus, right and left jori and left middle cerebellar peduncle. No masses, hemorrhage, or acute vascular insults. Suprasellar and sellar region: No abnormalities. Craniocervical junction: No abnormalities. The foramen magnum is patent. No Chiari malformations. Vessels: Normal flow-voids in the arteries and sinuses. Additional findings:Opacification of the right mastoid air cell tip. IMPRESSION: No acute intracranial abnormalities, specifically, no acute infarct. Severe chronic microvascular ischemic change and chronic lacunar infarcts, as above. Moderate generalized volume loss for patient's age. Moderate volume loss of the midbrain Signed by: Dr. Anne Marie Yanez M.D. on 12/05/2018 2:34 PM
--- NOTE | 2018-12-05 14:45 | NUR ---
Pt received from MS1 at this time. Pt aox3 and able to verbalize needs. Denies any pain at this time. Pt is able to verbalize needs. Denies any SOB on 2.5L/NC. Left upper arm fistula is patent.
[2018-12-05 15:52] LABS: CREATINE KINASE MB 0.7 ng/mL (0-5.0)
--- NOTE | 2018-12-05 19:00 | NUR ---
Pt visited in room during nursing rounds. Patient alert and oriented x2 (i.e. pt tends to forget recent information but easy to re-orient). Pt on scheduled IV antibiotics. Pt scheduled for hemodialysis tonight (site is [facility]). On continuous pulse ox and on 2L NC. Condition stable. Call gutierrez within reach. Will monitor closely.
--- NOTE | 2018-12-05 20:51 | Consultation ---
DATE OF CONSULTATION: 12/05/2018 HISTORY OF PRESENT ILLNESS: Apparently, this is an 78-year-old white gentleman, known to our Nephrology Service, is a dialysis patient of ours with underlying progressive decline over health, dementia, history of type 2 diabetes, diabetic kidney disease, retinopathy, neuropathy, prior cerebrovascular disease, prior [place], CHF, and history of hypertension, who was brought to the hospital with hallucination. He is currently lying supine, in no apparent distress. Opens his eyes, follows commands. Does not know why he is here. SOCIAL HISTORY: The patient's daughter is fairly active in taking care of him. FAMILY HISTORY: Significant for diabetes. CURRENT LABORATORY DATA: White count 7.4, hemoglobin 11.5 with a potassium 4.1, bicarbonate 26, creatinine 7.8 with a calcium 8.5. ALLERGIES: TO SULFA. CURRENT MEDICATIONS: Please see medication list, but he is on azithromycin IV. He is apparently on normal saline 50 mL an hour, which I am going to stop. He apparently received one time dose of potassium chloride IV. He is on Tylenol p.r.n., albuterol/Atrovent nebulizer, amlodipine 10 mg daily, famotidine, and Pepcid 20 mg at bedtime. He is on hydralazine p.r.n., guaifenesin, lisinopril 2.5 mg daily, which has been stopped. He is on melatonin 3 mg p.o. at bedtime, levothyroxine 112 mcg daily, and isosorbide 10 mg b.i.d. SOCIAL HISTORY: Does not smoke or drink. PHYSICAL EXAMINATION: GENERAL: Awake, alert, and disoriented. VITAL SIGNS: Blood pressure 118/55, pulse rate 57, afebrile, and respiratory rate 17. HEAD AND NECK: Arcus senilis noted. Oral mucosa, limited exam. LUNGS: Relatively clear. HEART: S1 and S2 audible. ABDOMEN: Otherwise, soft and nontender. EXTREMITIES: Lower extremity, no edema. IMPRESSION AND PLAN: End-stage renal disease, evidence of mild fluid overload, and underlying dementia. Last echo relatively preserved ejection fraction, history of hypertension, multiple comorbidities. Overall poor prognosis. I will arrange for dialysis. Consider Psych eval and jail placement. Further recommendations to follow. MD GAVINO Pérez/HEAVEN /[id number]
--- NOTE | 2018-12-05 21:15 | Consultation ---
DATE OF CONSULTATION: Pulmonary/Critical Care consultation CHIEF COMPLAINT: Confusion and infiltrate on chest x-ray. HISTORY OF PRESENT ILLNESS: The patient is an 78-year-old man. He has a history of organic brain syndrome. He also has a history of end-stage renal disease. Apparently, he stays at a nursing facility. He came in with increasing confusion and disorientation. He was found to have an infiltrate at the right base on his x-ray. PAST MEDICAL HISTORY: 1. End-stage renal disease. 2. Organic brain syndrome. PAST SURGICAL HISTORY: Unknown. ALLERGIES: THE PATIENT IS ALLERGIC TO SULFA MEDICATIONS. SOCIAL HISTORY: The patient stays in the nursing facility. He is not an active smoker or drinker. FAMILY HISTORY: Family history is noncontributory. REVIEW OF SYSTEMS: The patient has increased confusion. There is no history of fevers. There is no reported history of chest pain or difficulty breathing. He does have some chronic leg edema. He has no abdominal pain. PHYSICAL EXAMINATION: VITAL SIGNS: The patient is afebrile. The blood pressure is 119/55 and the saturation is 99%. HEENT: Shows no facial swelling or erythema. The oropharynx is normal. LYMPHATIC: Shows no submandibular, cervical, or supraclavicular adenopathy. CARDIAC: Reveals regular rate and rhythm with normal S1, S2. LUNGS: Auscultation of lungs reveals decreased breath sounds at the bases. There is no wheezing. ABDOMEN: Soft, nontender. There is no rebound or guarding. EXTREMITIES: Show some chronic leg edema with changes consistent with venous stasis. There are poor pulses distally. NEUROLOGIC: Shows confusion. LABORATORY DATA: White blood cell count is 7.4, hemoglobin is 11.5, the platelet count is 117. IMPRESSION: 1. End-stage renal disease. 2. Right lower lobe infiltrate suggestive of possible aspiration pneumonia. PLAN: 1. Continue current antibiotics. 2. Continue dialysis. 3. Swallowing evaluation. 4. Poor prognosis. Abdoulaye Solis MD [facility]/MODL /[id number]
--- NOTE | 2018-12-05 21:45 | NUR ---
Patient started on hemodialysis by dialysis nurse (Alejandra) as per MD order. Patient's IV antibiotic, Zithromax, on hold at this time till dialysis sessions is finished. Will hang antibiotic post dialysis.
[2018-12-06] VITALS (7 sets, daily range): BP systolic 111–138; BP diastolic 56–61
[2018-12-06] MEDS: IPRATROPIUM BROMIDE 0.02% 2.5 ML NEB NEB SCH ×6 (02:05→23:45)
[2018-12-06] MEDS: ALBUTEROL SULF 0.083% NEB SOLN 3 ML NEB NEB SCH ×6 (02:05→23:45)
[2018-12-06 05:25] LABS: BASOPHILS % 0.4 % (0.0-1.0); EOSINOPHILS # (AUTO) 0.2 (0.0-0.4); EOSINOPHILS % 4.6 % (0.0-6.0); HEMATOCRIT 31.1 % (38.2-49.6); HEMOGLOBIN 9.8 g/dL (14.0-18.0); LYMPHOCYTES # (AUTO) 1.1 (1.0-3.2); LYMPHOCYTES % 20.3 % (18.0-39.1); MEAN CORPUSCULAR HEMOGLOBIN 31.9 pg (28-32); MEAN CORPUSCULAR HGB CONC 31.5 g/dL (31-35); MEAN CORPUSCULAR VOLUME 101.3 fL (81-99); MONOCYTES # (AUTO) 0.5 (0.2-0.8); NEUTROPHILS # (AUTO) 3.3 (2.1-6.9); NEUTROPHILS % 64.5 % (38.7-80.0); PLATELET COUNT 100 x10e3/uL (140-360); RED BLOOD COUNT 3.07 x10e6/uL (4.3-5.7); RED CELL DISTRIBUTION WIDTH 14.6 % (11.7-14.4)
[2018-12-06 05:42] LABS: ANION GAP 11.8 mmol/L (8-16); CALCIUM 8.1 mg/dL (8.4-10.2); CREATININE, SERUM 5.7 mg/dL (0.72-1.25); POTASSIUM 3.8 mmol/L (3.5-5.1)
--- NOTE | 2018-12-06 07:10 | NUR ---
RCD PT AT BED PT IS ALERT AND RESTING ON BED NO SIGNS OF ANY DISTRESS NOTED IV PATENT BY SALINE FLUSH BED LOW AND LOCKED CALL LIGHT IN REACH
[2018-12-06] MEDS: INSULIN LISPRO 100 UNIT/1 ML 3ML VIAL SQ SCH ×4 (07:30→22:00)
[2018-12-06] MEDS: FAMOTIDINE 20 MG TAB PO SCH ×2 (07:30→16:30)
[2018-12-06] MEDS: ISOSORBIDE DINITRATE 20 MG TAB PO SCH ×2 (09:00→17:00)
[2018-12-06] MEDS: AMLODIPINE BESYLATE 10 MG TAB PO SCH (09:00)
[2018-12-06] MEDS: GUAIFENESIN 600MG/DEXTROMETHORPHAN 30MG TABSR PO SCH ×2 (09:00→17:00)
[2018-12-06] MEDS: PIPERACILLIN/TAZO 2.25 GM 50 ML IV SCH ×2 (09:00→22:00)
[2018-12-06] MEDS: LEVOTHYROXINE SODIUM 112 MCG TAB PO SCH (09:00)
--- NOTE | 2018-12-06 11:00 | NUR ---
PAGED ELADIA AVALOS TO NOTIFY THE BED SIDE BARIUM SWALLOW REPORT
--- NOTE | 2018-12-06 11:41 | NUR ---
WOUNDCARE CONSULT 78YO MALE HX OF ESRD & PNEU RAYSA 5 ON STRICT PUP PROTOCOL LABS: WBC-7.42,HGB - 11.5 , HEM A1C - 4.5 AND BLOOD CULTURE PENDING ASSESSMENT FINDINGS: #1 RT BUTTOCKS HEALING STG 2 ULCER 1CMX 1.5 CM X.1CM SMALL AMOUNT OF MACERATION NOTED TO NEWLY HEALED WOUND BASE SURROUNDING SKIN PINK AND BLANCHABLE #2 LFT HEEL UNSTAGEABLE ULCER SMALL SCAB WITH PINK BLANCHABLE SURROUNDING SKIN RECOMMENDATIONS: NURSING TO CONTINUE TO PROTECT AND OFFLOAD PT PRESSURE POINTS AND ALSO MAINTAIN STRICT PUP STATUS NURSING TO CONTINUE ALTERNATING PRESSURE MATTRESS AND BILATERAL HEEL PROTECTORS WITH PILLOW SUSPENSION OF HEELS NURSING TO CONTINUE TO ASSIST PT OUT OF BED FOR MEALS AND MUCH TOLERATED NURSING TO APPLY DAILY VENELEX OINTMENT TO LEFT HEEL UNSTAGEABLE ULCER NURSING TO APPLY VENELEX OINTMENT DAILY TO SACRAL STAGE 2 ULCERATION COVER WITH ALLEVYN FOAM Addendum: 12/06/18 at 1155 by Herminio Bhatt RN Amended: Links added.
--- NOTE | 2018-12-06 13:44 | Progress Note ---
DATE: SUBJECTIVE: The patient is more alert today. He was evaluated by speech therapy. PHYSICAL EXAMINATION: VITAL SIGNS: The patient is afebrile. The vital signs are stable. HEENT: Shows no facial swelling or erythema. CARDIAC: Reveals regular rate and rhythm with normal S1 and S2. LUNGS: Auscultation of lungs reveals decreased breath sounds at the bases. There is no wheezing. ABDOMEN: Soft and nontender. There is no rebound or guarding. EXTREMITIES: Shows no leg edema or calf tenderness. There is no cyanosis or clubbing. IMPRESSION: 1. End-stage renal disease. 2. Aspiration pneumonia with sepsis, present on admission. PLAN: 1. Continue antibiotics. 2. Continue speech therapy. 3. Continue dialysis. Abdoulaye Solis MD [facility]/MODL /[id number]
--- NOTE | 2018-12-06 14:00 | Diagnostic Imaging Report ---
PROCEDURE: X-RAY MODIFIED BARIUM SWALLOW COMPARISON: None. INDICATION: Pneumonia, Aspiration Radiation Details: Fluoroscopy time: 2:18 minutes Cumulative dose: 7.74 mGy DISCUSSION: Fluoroscopic examination was performed in conjunction with speech pathology during swallowing a variety of thin and thick liquid consistencies. Provided images demonstrate trace silent laryngeal penetration and silent aspiration. CONCLUSION: Modified barium swallow demonstrating trace silent laryngeal penetration and silent aspiration. Please refer to the speech pathology report for further details. Signed by: Chavez Toro MD on 12/06/2018 1:56 PM
--- NOTE | 2018-12-06 14:19 | NUR ---
MAMI MONTILLA NP AND TALKED HIM GOT THE APPROVAL FOR DIET AND NMES
--- NOTE | 2018-12-06 14:51 | NUR ---
PT WALKED WITH PT FOR 60 FEET WITH UNSTEADY GAIT PT RECOMMENDED INPATIENT REHAB
--- NOTE | 2018-12-06 16:43 | NUR ---
Nutrition Screen Note RD Recommendation for Physician: - Rec renal/ ADA 2200 diet as medically appropriate - Diet texture per CREDIT AND COLLECTION MANAGER Plan of Care: RD following, monitoring for tolerance and adequacy Nutrition reason for involvement: Diagnosis Primary Diagnose(s): Aspiration PNA PMH: Organic brain syndrome, ESRD on HD, DM, CVA, UT, CHF, HTN Ht: 73in Wt: 166lb BMI: 21.9kg/m2 IBW: 184lb +/- 10% RD Assessment: (12/06) Chart reviewed. Labs and meds reviewed. 78yo M, who was admitted for aspiration PNA. CREDIT AND COLLECTION MANAGER rec mechanical soft diet with nectar thick liquids. NMES has been ordered. Visited pt in the room. Swallow precaution was posted in the room. Per daughter, family has been bringing food from home. Appetite has been good. No complains of nausea or vomiting reported. Weight has been stable. Pt was seeing a dietitian at [facility] and family was aware of diet restrictions. All questions have been answered. Current Diet: ADA 1800 (mechanical soft, nectar thick), 1.2 L fluids restriction Malnutrition Evaluation (12/06/2018) The patient does not meet criteria for a specified degree of malnutrition at this time. Will re-evaluate at follow-up as appropriate. Diet Education Needs Assessment: Diet education not indicated. Followed by RD at [facility]. Nutrition Care Level: low Signed: Divine Lea MS, RD, LD
--- NOTE | 2018-12-06 18:40 | NUR ---
PT RESTING ON BED BED SIDE REPORT GIVEN TO ONCOMING NURSE
--- NOTE | 2018-12-06 19:00 | NUR ---
Pt visited in room during nursing rounds. Patient alert and oriented x2 (i.e. pt tends to forget recent information but easy to re-orient). Pt on scheduled IV antibiotics. Family at bedside visiting. On continuous pulse ox and on 2L NC. Condition stable. Call gutierrez within reach. Will monitor closely.
[2018-12-06] MEDS: AZITHROMYCIN 500MG/NS 250 ML 250 ML IV SCH (22:50)
[2018-12-07] VITALS (8 sets, daily range): BP systolic 124–165; BP diastolic 57–70
[2018-12-07] MEDS: ALBUTEROL SULF 0.083% NEB SOLN 3 ML NEB NEB SCH ×6 (03:00→23:24)
[2018-12-07] MEDS: IPRATROPIUM BROMIDE 0.02% 2.5 ML NEB NEB SCH ×6 (03:00→23:24)
[2018-12-07] MEDS: FAMOTIDINE 20 MG TAB PO SCH ×2 (07:30→16:30)
[2018-12-07] MEDS: INSULIN LISPRO 100 UNIT/1 ML 3ML VIAL SQ SCH ×4 (07:30→20:30)
[2018-12-07] MEDS: LEVOTHYROXINE SODIUM 112 MCG TAB PO SCH (09:00)
[2018-12-07] MEDS: GUAIFENESIN 600MG/DEXTROMETHORPHAN 30MG TABSR PO SCH ×2 (09:00→17:00)
[2018-12-07] MEDS: BALSAM PERU/CASTOR OIL 5 GM OINT...G. TP SCH (09:00)
[2018-12-07] MEDS: AMLODIPINE BESYLATE 10 MG TAB PO SCH (09:00)
[2018-12-07] MEDS: ISOSORBIDE DINITRATE 20 MG TAB PO SCH ×2 (09:00→17:00)
[2018-12-07] MEDS: PIPERACILLIN/TAZO 2.25 GM 50 ML IV SCH ×2 (09:00→23:14)
--- NOTE | 2018-12-07 13:10 | NUR ---
ST NOTE: Pt having dialysis, extremely fatigued, will initiate NMES to treat dysphagia 12/08/18
--- NOTE | 2018-12-07 14:00 | NUR ---
DIALYSIS DONE AND REMOVED 3 LTRS
--- NOTE | 2018-12-07 14:50 | NUR ---
PAGED ELADIA CONTENT CURATOR TO NOTIFY GET THE ORDER FOR HOME HEALTH AND LEFT THE MESSAGE
--- NOTE | 2018-12-07 15:57 | Progress Note ---
DATE: SUBJECTIVE: The patient is receiving dialysis today. He is less confused and overall improved. OBJECTIVE: VITAL SIGNS: The patient is afebrile. The vital signs are stable. HEENT: Shows no facial swelling or erythema. CARDIAC: Reveals a regular rate and rhythm with a normal S1 and S2. LUNGS: Auscultation of lungs reveals clear breath sounds bilaterally. There is no wheezing. ABDOMEN: Soft, nontender. There is no rebound or guarding. EXTREMITIES: Show no leg edema or calf tenderness. There is no cyanosis or clubbing. SKIN: Shows no rashes. NEUROLOGICAL: Shows no focal abnormalities. IMPRESSION: 1. End-stage renal disease. 2. Aspiration pneumonia with sepsis, present on admission. 3. Metabolic encephalopathy. PLAN: 1. Continue antibiotics. 2. Speech therapy. 3. Dialysis. Abdoulaye Solis MD [facility]/MODL /[id number]
--- NOTE | 2018-12-07 18:41 | NUR ---
PT RESTING ON BED BED SIDE EPORT GIVEN TO ONCOMING NURSE
--- NOTE | 2018-12-07 19:12 | NUR ---
PT IS RESTING IN BED WITH DAUGHTER AT BEDSIDE. RESPIRATION IS EVEN AND UNLABORED, NO DISTRESS NOTED. BED IN THE LOWEST POSITION, LOCKED, BED ALARM ON, AND CALL LIGHT WITHIN REACH. WILL CONTINUE TO MONITOR.
[2018-12-07] MEDS: AZITHROMYCIN 500MG/NS 250 ML 250 ML IV SCH (23:46)
[2018-12-08] VITALS (8 sets, daily range): BP systolic 119–163; BP diastolic 16–71
[2018-12-08] MEDS: ALBUTEROL SULF 0.083% NEB SOLN 3 ML NEB NEB SCH ×6 (03:00→23:05)
[2018-12-08] MEDS: IPRATROPIUM BROMIDE 0.02% 2.5 ML NEB NEB SCH ×6 (03:00→23:05)
[2018-12-08] MEDS: FAMOTIDINE 20 MG TAB PO SCH ×2 (07:30→16:30)
[2018-12-08] MEDS: INSULIN LISPRO 100 UNIT/1 ML 3ML VIAL SQ SCH ×4 (07:30→21:45)
[2018-12-08] MEDS: PIPERACILLIN/TAZO 2.25 GM 50 ML IV SCH ×2 (09:00→20:57)
[2018-12-08] MEDS: LEVOTHYROXINE SODIUM 112 MCG TAB PO SCH (09:00)
[2018-12-08] MEDS: AMLODIPINE BESYLATE 10 MG TAB PO SCH (09:00)
[2018-12-08] MEDS: GUAIFENESIN 600MG/DEXTROMETHORPHAN 30MG TABSR PO SCH ×2 (09:00→17:00)
[2018-12-08] MEDS: ISOSORBIDE DINITRATE 20 MG TAB PO SCH ×2 (09:00→17:00)
[2018-12-08] MEDS: BALSAM PERU/CASTOR OIL 5 GM OINT...G. TP SCH (09:00)
--- NOTE | 2018-12-08 11:00 | NUR ---
Spoke to pt and his daughter at bedside regarding order for inpatient rehab. Pt's daughter stated that she would like for pt to go to a facility closest to this area. Gave choice for [facility] ([facility]). Pt agreed. Asked his daughter to sign choice letter. Signed choice letter placed in chart. Copy to pt's daughter. Left message for Zhanna with [facility] of referral.
--- NOTE | 2018-12-08 13:11 | NUR ---
MARTÍN did not get a response from Zhanna. Referral faxed to [phone]. MARTÍN called rep Freddie with [facility] who states she is covering today. Informed her of referral and transfer when accepted. States she will be looking for referral.
--- NOTE | 2018-12-08 17:26 | NUR ---
MOT initiated and placed with pt's packet at nurse's station. Discharge disposition, once approved. [address] [place] [address]
--- NOTE | 2018-12-08 18:40 | NUR ---
PT RESTING ON BED BED SIDE EPORT GIVEN TO ONCOMING NURSE
--- NOTE | 2018-12-08 19:00 | NUR ---
Received pt awake on bed, not in distress, daughter at bedside, call light within easy reach, bed in low position and locked, bed alarm on. Will continue to monitor closely.
--- NOTE | 2018-12-08 20:07 | Progress Note ---
DATE: SUBJECTIVE: The patient has no new complaints. He has less congestion and less cough. PHYSICAL EXAMINATION: VITAL SIGNS: The patient is afebrile. The vital signs are stable. HEENT: Shows no facial swelling or erythema. CARDIAC: Reveals regular rate and rhythm with normal S1 and S2. There are no murmurs or rubs. LUNGS: Auscultation of lungs reveals clear breath sounds bilaterally. There is no wheezing. ABDOMEN: Soft, nontender. There is no rebound or guarding. EXTREMITIES: Show no leg edema or calf tenderness. IMPRESSION: 1. Aspiration pneumonia with sepsis, present on admission. 2. Metabolic encephalopathy. 3. End-stage renal disease. PLAN: 1. Speech therapy. 2. Complete antibiotics. 3. Dialysis. Abdoulaye Solis MD [facility]/MODL /[id number]
[2018-12-08] MEDS: AZITHROMYCIN 500MG/NS 250 ML 250 ML IV SCH (21:55)
[2018-12-09] VITALS: BP 130/60
[2018-12-09] MEDS: IPRATROPIUM BROMIDE 0.02% 2.5 ML NEB NEB SCH ×4 (02:50→15:13)
[2018-12-09] MEDS: ALBUTEROL SULF 0.083% NEB SOLN 3 ML NEB NEB SCH ×4 (02:50→15:13)
[2018-12-09 03:57] LABS: ANION GAP 11.3 mmol/L (8-16); CALCIUM 8.1 mg/dL (8.4-10.2); CREATININE, SERUM 5.93 mg/dL (0.72-1.25); POTASSIUM 4.3 mmol/L (3.5-5.1)
[2018-12-09 04:00] VITALS: BP 143/65
--- NOTE | 2018-12-09 05:00 | NUR ---
Allevyn foam changed, venelex applied to the the sacrum and buttocks
[2018-12-09 05:24] LABS: BASOPHILS # (AUTO) 0.1 (0.0-0.1); BASOPHILS % 0.9 % (0.0-1.0); EOSINOPHILS # (AUTO) 0.4 (0.0-0.4); EOSINOPHILS % 7.5 % (0.0-6.0); HEMATOCRIT 29.6 % (38.2-49.6); HEMOGLOBIN 9.2 g/dL (14.0-18.0); LYMPHOCYTES # (AUTO) 1.2 (1.0-3.2); LYMPHOCYTES % 20.7 % (18.0-39.1); MEAN CORPUSCULAR HEMOGLOBIN 32.1 pg (28-32); MEAN CORPUSCULAR HGB CONC 31.1 g/dL (31-35); MEAN CORPUSCULAR VOLUME 103.1 fL (81-99); MONOCYTES # (AUTO) 0.6 (0.2-0.8); MONOCYTES % 10.8 % (4.4-11.3); NEUTROPHILS # (AUTO) 3.4 (2.1-6.9); NEUTROPHILS % 59.8 % (38.7-80.0); PLATELET COUNT 103 x10e3/uL (140-360); RED BLOOD COUNT 2.87 x10e6/uL (4.3-5.7)
--- NOTE | 2018-12-09 06:48 | NUR ---
received bedside report from manufacturing supervisor 2nd shift RN, pt resting comfortably in bed, awake, alert, no distress noted, will continue to assess
[2018-12-09] MEDS: INSULIN LISPRO 100 UNIT/1 ML 3ML VIAL SQ SCH ×3 (07:30→16:17)
[2018-12-09 08:00] VITALS: BP 146/65
[2018-12-09] MEDS: FAMOTIDINE 20 MG TAB PO SCH ×2 (08:00→16:21)
[2018-12-09] MEDS: GUAIFENESIN 600MG/DEXTROMETHORPHAN 30MG TABSR PO SCH ×2 (08:01→16:21)
[2018-12-09] MEDS: LEVOTHYROXINE SODIUM 112 MCG TAB PO SCH (08:02)
[2018-12-09] MEDS: AMLODIPINE BESYLATE 10 MG TAB PO SCH (08:02)
[2018-12-09] MEDS: ISOSORBIDE DINITRATE 20 MG TAB PO SCH ×2 (08:13→16:21)
[2018-12-09] MEDS: PIPERACILLIN/TAZO 2.25 GM 50 ML IV SCH (08:24)
[2018-12-09 08:54] VITALS: BP 146/65
[2018-12-09] MEDS: BALSAM PERU/CASTOR OIL 5 GM OINT...G. TP SCH (09:00)
--- NOTE | 2018-12-09 10:04 | NUR ---
ST NOTE: Pt having dialysis, extremely fatigued, will return later for NMES to treat dysphagia time permitting, handoff to GARO Bernal
--- NOTE | 2018-12-09 10:55 | NUR ---
Pt has been accepted to: [address] [address] Rm 5788 Attending MD: Dr. Gaffney Physical Education Department Chair: Suzie Ji Call report to [phone] MOT information received from Zhanna Self The following document must accompany patient for transfer: copy of chart, updated MAR Copied chart: Becka, gunite mixer Physician's order/reconciled med list: to be obtained by bedside nurse. Out of hospital DNR: n/a MOT completed and placed with pt's packet at nurses station Dolores, ENVIRONMENTAL SERVICES COORDINATOR was informed of MOT.
--- NOTE | 2018-12-09 11:35 | Progress Note ---
DATE: SUBJECTIVE: The patient has no new issues. He is still feeling weak. PHYSICAL EXAMINATION: VITAL SIGNS: The patient is afebrile. The vital signs are stable. HEENT: Shows no facial swelling or erythema. CARDIAC: Reveals a regular rate and rhythm with normal S1, S2. There are no murmurs or rubs. LUNGS: Auscultation of lungs reveals clear breath sounds bilaterally. There is no wheezing. ABDOMEN: Soft, nontender. There is no rebound or guarding. EXTREMITIES: Show no leg edema or calf tenderness. There is no cyanosis or clubbing. SKIN: Shows no rashes. NEUROLOGICAL: Shows no focal abnormalities. IMPRESSION: 1. Aspiration pneumonia with sepsis, present on admission. 2. Metabolic encephalopathy. 3. End-stage renal disease. PLAN: 1. Continue antibiotics. 2. Dialysis. 3. Speech therapy. 4. Inpatient rehab evaluation. MD BALTAZAR Lacey/HEAVEN /[id number]
[2018-12-09 12:04] VITALS: BP 118/54
--- NOTE | 2018-12-09 14:08 | NUR ---
dialysis complete, pt in stable condition, daughter at bedside, call light within reach, will continue to assess.
[2018-12-09 16:09] VITALS: BP 153/70
--- NOTE | 2018-12-09 17:35 | NUR ---
pt left via stretcher with EMS to be transferred to [facility], left in stable condition, no distress noted.
--- NOTE | 2018-12-10 04:44 | Discharge Summary ---
ADMISSION DIAGNOSES: AMS, type 2 diabetes, end-stage renal disease, chronic diastolic congestive heart failure, urinary tract infection present on admission, aspiration pneumonia present on admission, hypothyroidism, hypertension with end-stage renal disease. DISCHARGE DIAGNOSES: AMS, type 2 diabetes, end-stage renal disease, chronic diastolic congestive heart failure, urinary tract infection present on admission, aspiration pneumonia present on admission, hypothyroidism, hypertension with end-stage renal disease, rule out cerebrovascular accident, rule out transient ischemic attack. HISTORY: Hypertension, type 2 diabetes, chronic diastolic CHF, end-stage renal disease and hypothyroidism. SURGICAL HISTORY: Bilateral hip surgery. FAMILY HISTORY: Unable to obtain. SOCIAL HISTORY: Unable to obtain. HOSPITAL COURSE: An 78-year-old male brought from home due to AMS and his glucose is 70. He was hallucinating and thought people were chasing him. At present, the patient is refusing to talk. RN said he was talking to her this morning and said he was having trouble swallowing. Records were pulled from the ER report, hence the patient would not communicate with me. The patient had a CT of the brain which showed no acute abnormalities. CT of the chest showed patchy opacities in the right lung base concerning for aspiration pneumonitis. MRI of the brain showed no acute abnormalities. Echo showed an EF of 50%. Bilateral carotid Doppler showed mild stenosis. The patient had an MBS which showed trace silent laryngeal penetration and silent aspiration. Urine culture and blood culture both came back negative. Per speech therapy recommendation, patient was placed on mechanical soft with nectar thick liquid diet. Per daughter's request, the patient will transfer to [facility] for inpatient rehab. The patient understands discharge instructions and agrees to plan. The patient was started on Zithromax and Rocephin and his AMS has resolved. The patient will continue the same medicines at [facility]. Vital signs stable, patient afebrile. Dictated by Char Kennedy, BAILEY MD [facility]/MODL /[id number]
== END 2018-12-09 17:35 | DRG 64 ==
LOC: ER 16:09 → ERHOLD 18:08 → MED/SURG 20:13 → MED/SURG3 12-05 14:54
PROVIDERS: ADMIT Internal Medicine; ATTEND Internal Medicine
PROC: 5A1D70Z Performance of Urinary Filtration, Intermittent, Less than 6 Hours Per Day (ICD-10-PCS; 2018-12-05)
PROC: 5A1D70Z Performance of Urinary Filtration, Intermittent, Less than 6 Hours Per Day (ICD-10-PCS; 2018-12-07)
PROC: 5A1D70Z Performance of Urinary Filtration, Intermittent, Less than 6 Hours Per Day (ICD-10-PCS; principal; 2018-12-09)
DX: I63.9 Cerebral infarction, unspecified (principal); A41.9 Sepsis, unspecified organism; J18.9 Pneumonia, unspecified organism; N18.6 End stage renal disease; I13.2 Hypertensive heart and chronic kidney disease with heart failure and with stage 5 chronic kidney disease, or end stage renal disease; I50.32 Chronic diastolic (congestive) heart failure; N39.0 Urinary tract infection, site not specified; Z99.2 Dependence on renal dialysis; E11.22 Type 2 diabetes mellitus with diabetic chronic kidney disease; E11.65 Type 2 diabetes mellitus with hyperglycemia; Z79.4 Long term (current) use of insulin
CPT/HCPCS: 36415; 70450; 70551; 71045; 74230; 80048; 80053; 81001; 82140; 82550; 82553; 82948; 83036; 83880; 84443; 84484; 85025; 85610; 85730; 86706; 87040; 87086; 87340; 90962; 93005; 93306; 93880; 94640; 97139; 99284; J0456; J2543; J3480; J7030